=== PATIENT | female | born 1960 | race African-American/Black ===

== ENCOUNTER 2019-04-22 06:34 | Day surgery (SDC) | payer OTHER ==
--- OUTSIDE RECORDS SUMMARY | 2019-04-22 06:37 | XMS REPORT ---
:1960 [facility] [address] [place] [id number] Care Team Providers Name Role Phone Unavailable Unavailable Unavailable Problems This patient has no known problems. Allergies, Adverse Reactions, Alerts This patient has no known allergies or adverse reactions. Medications This patient has no known medications.
--- OUTSIDE RECORDS SUMMARY | 2019-04-22 06:37 | XMS REPORT ---
:1960 Author Organization eClinicalWorks Care Team Providers Name Role Phone Mantilla, Na Provider Role Unavailable Allergies No Known Allergies Problems Problem Type Condition Code Onset Dates Condition Status Problem Hyperthyroidism E05.90 Active Problem Seasonal allergies J30.2 Active Problem Weight loss R63.4 Active Problem Chronic fatigue R53.82 Active Problem Decreased vision of left eye H54.62 Active Problem Dyspnea on exertion R06.09 Active Problem Blood tests for routine general Z00.00 Active physical examination Medications Medication Code Code Instructions Start End Date Status D[facility]age System [facility]10 MG/5ML December 20, December 27, Active 5 ml Orally every 6 2019 2019 hours Results No Known Results Summary Purpose eClinicalWorks Submission
--- OUTSIDE RECORDS SUMMARY | 2019-04-22 06:37 | XMS REPORT ---
:1960 Author Organization eClinicalWorks Care Team Providers Name Role Phone Mantilla, Na Provider Role Unavailable Allergies No Known Allergies Problems Problem Type Condition Code Onset Dates Condition Status Problem Dyspnea on exertion R06.09 Active Problem Blood tests for routine general Z00.00 Active physical examination Problem Gastroesophageal reflux disease, K21.9 Active esophagitis presence not specified Problem Chronic fatigue R53.82 Active Problem Goiter E04.9 Active Problem Hyperthyroidism E05.90 Active Problem Seasonal allergies J30.2 Active Problem Decreased vision of left eye H54.62 Active Problem Weight loss R63.4 Active Medications No Known Medications Results No Known Results Summary Purpose eClinicalWorks Submission
--- OUTSIDE RECORDS SUMMARY | 2019-04-22 06:37 | XMS REPORT ---
:1960 Author Organization eClinicalWorks Care Team Providers Name Role Phone Mantilla, Na Provider Role Unavailable Allergies, Adverse Reactions, Alerts Substance Reaction Event Type N.K.D.A. Info Not Available Non Drug Allergy Problems Problem Type Condition Code Onset Dates Condition Status Assessment Dyspnea on exertion R06.09 Active Assessment Hyperthyroidism E05.90 Active Problem Hyperthyroidism E05.90 Active Problem Seasonal allergies J30.2 Active Problem Weight loss R63.4 Active Problem Chronic fatigue R53.82 Active Problem Decreased vision of left eye H54.62 Active Problem Dyspnea on exertion R06.09 Active Problem Blood tests for routine general Z00.00 Active physical examination Assessment Blood tests for routine general Z00.00 Active physical examination Assessment Chronic fatigue R53.82 Active Assessment Screening for cardiovascular Z13.6 Active condition Assessment Seasonal allergies J30.2 Active Assessment Decreased vision of left eye H54.62 Active Assessment Weight loss R63.4 Active Medications Medication Code Code Instructions Start End Status Dosage System Date Date MethylPREDNISolone ND 35657527809 4 MG Orally December Active as daily 2018 Zyrtec Allergy ND 10246051152 10 MG Orally December Active 1 tablet Once a day 2018 Flonase [facility] 19610042815 50 MCG/ACT December Active 2 spray in Nasally Once a , each day 2019 nostril Results No Known Results Summary Purpose eClinicalWorks Submission
[2019-04-22] MEDS ORDERED: Ringers Lactate 1,000 ML IV ONE (07:14)
[2019-04-22] MEDS ORDERED: PROPOFOL 200 MG/20 ML VIAL IV ONE (08:31)
[2019-04-22] MEDS ORDERED: LIDOCAINE 1% MPF 5 ML VIAL ONE (08:31)
--- NOTE | 2019-04-22 19:54 | OP ---
Date of Procedure: 04/22/2019 Surgeon: Weston Silva MD Procedure Performed: Esophagogastroduodenoscopy. Indications For Procedure: Epigastric pain and gastroesophageal reflux disease. Plan For Anesthesia: Monitored anesthesia care. Complexity: Average. Technique: After obtaining informed consent from the patient, explaining risks and complications whi ch include, but are not limited to bleeding, infection, perforation, and anesthesia complication, the patient was placed in a left lateral position and sedation was given. From then on, the scope was a dvanced through the mouth and carefully guided up until the second portion of the duodenum. After th e completion of examination, the scope and equipment were withdrawn and procedure terminated in a saf e manner. Findings: 1.Esophagus: No gross lesion seen in the entire esophagus. The Z-line was slightly regular. Biops ies taken. The GE junction was at 37 cm. 2.Stomach: Minimal patchy erythema seen in the body and antrum, biopsies taken. 3.Duodenum: The bulb and second portion appeared normal. Complications: None. Tolerance To Anesthesia: Excellent. Postoperative Diagnosis: Gastritis. Plan: 1.Await pathology results. 2.May need PPI based on biopsy results. 3.Abdominal ultrasound if not already done to rule out cholelithiasis. 4.Follow up in the GI clinic in 2 weeks. US/MODL Voice ID: [id number] Report ID: [id number]
== END 2019-04-22 09:19 | disposition home or self-care (01) ==
LOC: OR 06:34
PROVIDERS: ATTEND Internal Medicine Gastroenterology
PROC: 0DB78ZX Excision of Stomach, Pylorus, Via Natural or Artificial Opening Endoscopic, Diagnostic (ICD-10-PCS; 2019-04-22)
PROC: 0DB68ZX Excision of Stomach, Via Natural or Artificial Opening Endoscopic, Diagnostic (ICD-10-PCS; 2019-04-22)
PROC: 0DB58ZX Excision of Esophagus, Via Natural or Artificial Opening Endoscopic, Diagnostic (ICD-10-PCS; principal; 2019-04-22 08:30)
DX: K29.50 Unspecified chronic gastritis without bleeding (principal); K21.0 Gastro-esophageal reflux disease with esophagitis
CPT/HCPCS: 43239; 88312; 88305; J2704

== ENCOUNTER 2019-08-08 17:57 | Emergency (ER) | payer OTHER ==
--- OUTSIDE RECORDS SUMMARY | 2019-08-08 17:59 | XMS REPORT ---
:1960 [facility] Address [facility] [address] Clark [address] [place] [address] Care Team Providers Name Role Phone Unavailable Unavailable Unavailable Problems This patient has no known problems. Allergies, Adverse Reactions, Alerts This patient has no known allergies or adverse reactions. Medications This patient has no known medications.
--- OUTSIDE RECORDS SUMMARY | 2019-08-08 17:59 | XMS REPORT ---
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
--- OUTSIDE RECORDS SUMMARY | 2019-08-08 17:59 | XMS REPORT ---
:1960 Author Organization eClinicalWorks Care Team Providers Name Role Phone Mantilla, nAna Provider Role Unavailable Allergies, Adverse Reactions, Alerts Substance Reaction Event Type N.K.D.A. 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 Problem Neuropathy G62.9 Active Problem Chronic fatigue R53.82 Active Problem Decreased vision of left eye H54.62 Active Problem Goiter E04.9 Active Problem Gastroesophageal reflux disease, K21.9 Active esophagitis presence not specified Assessment Neuropathy G62.9 Active Assessment Muscle cramps R25.2 Active Assessment Fatigue, unspecified type R53.83 Active Assessment Gastroesophageal reflux disease, K21.9 Active esophagitis presence not specified Assessment Moderately severe depression F32.2 Active Assessment Prediabetes R73.03 Active Problem Blood tests for routine general Z00.00 Active physical examination Assessment Mild anemia D64.9 Active Problem Dyspnea on exertion R06.09 Active Medications Medication Code Code Instructions Start End Status Dosage System Date Date Pantoprazole [facility] 20127946429 40 MG Orally Inactive 1 tablet Sodium Once a day Magnesium Oxide [facility] 90015897519 400 MG Orally Active 1 capsule -Mg Supplement twice a day as needed Flonase [facility] 60340507880 50 MCG/ACT December Active 2 spray in Nasally Once a 2018 each day nostril Zantac 150 ND 77253815015 150 MG Orally Active 1 tablet Maximum Once a day at bedtime Strength Omeprazole ND 71207300111 40 MG Orally Active 1 capsule Once a day Ferrous Sulfate ND 49852858971 325 (65 Fe) MG Active 1 tablet Orally Once a day Duloxetine HCl ND 49145038697 20 MG Orally Active 1 capsule Once a day Results No Known Results Summary Purpose eClinicalWorks Submission
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
[2019-08-08 20:59] VITALS: BP 138/80; TEMP 97.7; O2SAT 100
== END 2019-08-08 19:52 | disposition home or self-care (01) ==
LOC: ER 17:57
DX: S49.92XA Unspecified injury of left shoulder and upper arm, initial encounter (principal); V49.40XA Driver injured in collision with unspecified motor vehicles in traffic accident, initial encounter; E03.9 Hypothyroidism, unspecified
CPT/HCPCS: 72050; 99283